=== PATIENT | female | born 1960 | race Caucasian/White ===

== ENCOUNTER → 2023-08-16 10:21 | Outpatient (REF) | payer OTHER, SELFPAY | LOC: RAD 10:21 | PROVIDERS: ATTENDING PHYSICIAN Obstetrics & Gynecology; FAMILY PHYSICIAN Family Medicine | DX: N95.0 Postmenopausal bleeding (principal) | CPT/HCPCS: 76830; 76856 ==

== ENCOUNTER → 2023-10-02 15:22 | Outpatient (REF) | payer OTHER, SELFPAY ==
[2023-10-02 16:36] LABS: % Basophils 0.8 % (0-2); % Eosinophils 1.5 % (0-6); % Immature Granulocytes 0.3 % (0-0.5); % Lymphocytes 34.1 % (20.5-51.1); % Monocytes 9.1 % (1.7-9.3); % Neutrophils 54.2 % (42.2-75.2); Absolute Basophils 0.1 10^3/uL (0-0.2); Absolute Eosinophils 0.1 10^3/uL (0-0.7); Absolute Lymphocytes 2.7 10^3/uL (1.2-3.4); Absolute Monocytes 0.7 10^3/uL (0.1-0.6); Absolute Neutrophils 4.3 10^3/uL (1.4-6.5); Hematocrit 36.1 % (37.0-47.0); Hemoglobin 12.6 g/dL (12.0-16.0); Mean Corp Hgb Conc. 34.9 g/dL (33.0-37.0); Mean Corpuscular Hgb 29.9 pg (27.0-31.0); Mean Corpuscular Volume 85.7 fL (81.0-99.0); Mean Platelet Volume 9.1 fL (7.4-10.4); Nucleated Red Blood Cells % 0 %; Platelet Count 354 10^3/uL (130-400); Red Blood Cell Count 4.21 10^6/uL (4.20-5.40); Red Cell Dist. Width 13.2 % (11.5-14.5); White Blood Cell Count 7.9 10^3/uL (4.8-10.8)
[2023-10-02 16:40] LABS: INR 1.02; PT 13.2 Sec (11.4-14.6)
[2023-10-02 16:41] LABS: APTT 30.5 Sec (23.4-35.0)
[2023-10-02 17:01] LABS: Free T4 0.76 ng/dl (0.78-2.19)
[2023-10-02 17:15] LABS: TSH 1.91 uIU/ml (0.47-4.68)
== END ==
LOC: REG 15:22
PROVIDERS: ATTENDING PHYSICIAN Obstetrics & Gynecology; FAMILY PHYSICIAN Family Medicine
DX: N95.0 Postmenopausal bleeding (principal)
CPT/HCPCS: 36415; 84439; 84443; 85025; 85610; 85730; 93005

== ENCOUNTER 2023-10-05 07:32 | Day surgery (SDC) | payer OTHER, SELFPAY ==
[2023-10-05] VITALS (12 sets, daily range): BP systolic 128–166; BP diastolic 75–90; BMI 38.4
[2023-10-05] MEDS: NORMOSOL-R 1000 IV (09:28)
== END 2023-10-05 14:10 | disposition home or self-care (01) ==
LOC: SDS 07:32
PROVIDERS: ATTENDING PHYSICIAN Obstetrics & Gynecology; FAMILY PHYSICIAN Family Medicine
DX: N95.0 Postmenopausal bleeding (principal); Z79.890 Hormone replacement therapy; N85.8 Other specified noninflammatory disorders of uterus
CPT/HCPCS: 58558; 88305